=== PATIENT | female | born 1980 | race Caucasian/White ===

== ENCOUNTER 2018-09-22 00:44 | Emergency (ER) | payer MEDICAID ==
[2018-09-22] MEDS ORDERED: PREDNISONE 20 MG TAB PO ONE (00:51)
--- NOTE | 2018-09-22 00:56 | Emergency Department Record ---
History of Present Illness - General Chief Complaint: Difficulty Swallowing Stated Complaint: CAN'T SWALLOW Time Seen by Provider: 09/22/18 00:47 Source: Patient Mode of Arrival: Ambulatory Limitations: No limitations - History of Present Illness Initial Comments: 38 yo female presents to ED for evaluation of difficulty swallowing that began approximately 20 minutes prior to arrival. Patient denies wheezing, KEV, rash or itching symptoms. Patient reports the ability to swallow liquids without difficulty. Patient reports taking an OTC back pain pill and sleeping pill this evening, has taken the sleeping pill previously without these symptoms. Patient denies health problems at her baseline other than GERD. Onset/Timin -: Minutes(s) History of same: No Place: Home Severity: Moderate Improves With: None Worsens With: None On Anticoagulants: No Associated Symptoms: Denies other symptoms - [place] Coma Scale Eye Response: (4) Open spontaneously Motor Response: (6) Obeys commands Verbal Response: (5) Oriented [place] Total: 15 - Related Data Home Medications: Previous Rx's Medication Instructions Recorded Prednisone [Prednisone 20Mg] 20 mg PO BID #5 tab 09/22/18 Allergies/Adverse Reactions: Allergies Allergy/AdvReac Type Severity Reaction Status Date / Time No Known Drug Allergies Allergy Verified 09/22/18 00:57 Review of Systems Constitutional: Denies: Chills, Fever, Malaise, Night sweats Eyes: Denies: Eye discharge, Eye pain ENT: Denies: Congestion, Ear pain, Epistaxis Respiratory: Denies: Cough, Dyspnea Cardiovascular: Denies: Chest pain, Dyspnea on exertion Endocrine: Denies: Fatigue, Heat or cold intolerance Gastrointestinal: Reports: Other (Dysphagia). Denies: Abdominal pain, Nausea, Vomiting Genitourinary: Denies: Incontinence, Retention Musculoskeletal: Denies: Arthralgia, Back pain Skin: Denies: Bruising, Change in color Neurological: Denies: Abnormal gait, Confusion, Headache, Seizure Psychiatric: Denies: Anxiety Hematological/Lymphatic: Denies: Anemia, Blood Clots Physical Exam - General General Appearance: Alert, Oriented x3, Cooperative, Mild distress, Anxious Limitations: No limitations - Head Head exam: Atraumatic, Normocephalic, Normal inspection Head exam detail: negative: Abrasion, Contusion, Crocker's sign, General tenderness, Hematoma, Laceration - Eye Eye exam: Normal appearance. negative: Conjunctival injection, Periorbital swelling, Periorbital tenderness, Scleral icterus - ENT Ear exam: negative: Auricular hematoma, Auricular trauma Nasal Exam: negative: Active bleeding, Discharge, Dried blood, Foreign body Mouth exam: Tongue normal. negative: Drooling, Laceration, Muffled voice, Tongue elevation Throat exam: Other (Mild uvular edema is present on examination). negative: Tonsillar erythema, Tonsillomegaly, R peritonsillar mass, L peritonsillar mass - Neck Neck exam: Normal inspection. negative: Meningismus, Tenderness - Respiratory Respiratory exam: Normal lung sounds bilaterally. negative: Rales, Respiratory distress, Rhonchi, Stridor - Cardiovascular Cardiovascular Exam: Regular rate, Normal rhythm, Normal heart sounds - GI/Abdominal GI/Abdominal exam: Soft. negative: Rebound, Rigid, Tenderness - Rectal Rectal exam: Deferred - exam: Deferred - Extremities Extremities exam: Normal inspection. negative: Pedal edema, Tenderness - Back Back exam: Denies: CVA tenderness (R), CVA tenderness (L) - Neurological Neurological exam: Alert, Normal gait, Oriented X3 - Psychiatric Psychiatric exam: Normal affect, Normal mood - Skin Skin exam: Normal color. negative: Abrasion Type of lesion: negative: abrasion Course Vital Signs 09/22/18 00:49 Temperature 97.8 F Pulse Rate [ 97 H Pulse Ox Probe] Respiratory 20 Rate Blood Pressure 172/124 [Left Arm] Pulse Ox 100 - Reevaluation(s) Reevaluation #1: 09/22/18 00:56 Patient was seen and examined, no evidence for esophageal FB, no evidence for anaphylactic reaction. ? localized uvular edema? Will administer Prednisone and observe here in the ED. Reevaluation #2: 09/22/18 03:06 Patient reassessed, reports improvement in her symptoms. Awaiting CT imaging result. Reevaluation #3: 09/22/18 03:12 CT Soft-tissue neck: No acute findings Right maxillary sinus disease Patient was updated on all results, reports that she is feeling much better. Patient's symptoms appears most consistent with probable uvular edema. Will continue Prednisone for 3 days with instructions for follow-up with her PCP. Disposition Disposition: Discharge Clinical Impression: Uvular edema Disposition: Home, Self-Care Condition: (2) Stable Instructions: Uvulitis (ED) Additional Instructions: Return to ED if your symptoms worsen or if you have any concerns. Prednisone as directed. Follow-up with your family doctor in 1-3 days as directed. Prescriptions: Prednisone [Prednisone 20Mg] 20 mg PO BID #5 tab Forms: Patient Portal Access Time of Disposition: 03:14 Quality - Quality Measures Quality Measures: N/A - Blood Pressure Screening Does Patient Have Any of the Following: No Blood Pressure Classification: Hypertensive Reading Systolic Measurement: 144 Diastolic Measurement: 106 Screening for High Blood Pressure: < First Hypertensive BP, F/U Documented > [ G8950] First Hypertensive Follow-up Interventions: Referral to alternative/primary care provider.
[2018-09-22] MEDS ORDERED: MAGNESIUM HYDROXIDE/AL HYDROX 30 ML, LIDOCAINE VISC 2% 15ML 15 ML PO ONE ×2 (01:33)
== END 2018-09-22 03:23 | disposition home or self-care (01) ==
LOC: ER 00:44
DX: K13.79 Other lesions of oral mucosa (principal); R13.10 Dysphagia, unspecified
CPT/HCPCS: 70491; 99283; 99284; J7512

== ENCOUNTER 2018-10-07 14:32 | Emergency (ER) | payer MEDICAID ==
[2018-10-07] MEDS ORDERED: 0.9 % SODIUM CHLORIDE 1,000 ML BAG IV ONE (16:33)
--- NOTE | 2018-10-07 16:46 | Emergency Department Record ---
History of Present Illness - General Chief Complaint: Abdominal Pain Stated Complaint: RT ABD PAIN Time Seen by Provider: 10/07/18 16:29 Source: Patient Mode of Arrival: Ambulatory Limitations: No limitations - History of Present Illness Initial Comments: pt has had rlq ap for a week. she has n MD Complaint: Abdominal pain Onset/Timin -: Days(s) Location: Bilateral flank, RLQ Radiation: Back Severity scale (1-10): 3 Quality: Aching Improves With: Rest Worsens With: Movement Associated Symptoms: Anorexia, Nausea Treatments Prior to Arrival: Prescription analgesics, Antacids - Related Data LMP Date: 10/07/18 Home Medications Medication Instructions Recorded Confirmed Last Taken Tramadol HCl [Ultram] 50 mg PO BID 10/07/18 10/07/18 10/07/18 Allergies Allergy/AdvReac Type Severity Reaction Status Date / Time No Known Drug Allergies Allergy Verified 09/22/18 00:57 Travel Screening - Travel/Exposure Within Last 30 Days Have you traveled within the last 30 days?: No - Travel Symptoms Symptom Screening: Stomach Pain, Lack of Appetite Review of Systems Reviewed: No additional complaints except as noted below Constitutional: Reports: As per HPI. Denies: Chills, Fever, Malaise, Night sweats, Weakness, Weight change Eyes: Reports: As per HPI. Denies: Eye discharge, Eye pain, Photophobia, Vision change ENT: Reports: As per HPI. Denies: Congestion, Dental pain, Ear pain, Epistaxis , Hearing loss, Throat pain Respiratory: Reports: As per HPI. Denies: Cough, Dyspnea, Hemoptysis, Stridor, Wheezes Cardiovascular: Reports: As per HPI. Denies: Arrhythmia, Chest pain, Dyspnea on exertion, Edema, Murmurs, Orthopnea, Palpitations, Paroxysmal nocturnal dyspnea, Rheumatic Fever, Syncope Endocrine: Reports: As per HPI. Denies: Fatigue, Heat or cold intolerance, Polydipsia, Polyuria Gastrointestinal: Reports: As per HPI, Abdominal pain, Nausea. Denies: Constipation, Diarrhea, Hematemesis, Hematochezia, Melena, Vomiting Genitourinary: Reports: As per HPI. Denies: Abnormal menses, Discharge, Dyspareunia, Dysuria, Frequency, Hematuria, Incontinence, Retention, Urgency Musculoskeletal: Reports: As per HPI. Denies: Arthralgia, Back pain, Gout, Joint swelling, Myalgia, Neck pain Skin: Reports: As per HPI. Denies: Bruising, Change in color, Change in hair/ nails, Lesions, Pruritus, Rash Neurological: Reports: As per HPI. Denies: Abnormal gait, Confusion, Headache, Numbness, Paresthesias, Seizure, Tingling, Tremors, Vertigo, Weakness Psychiatric: Reports: As per HPI. Denies: Anxiety, Auditory hallucinations, Depression, Homicidal thoughts, Suicidal thoughts, Visual hallucinations Hematological/Lymphatic: Reports: As per HPI. Denies: Anemia, Blood Clots, Easy bleeding, Easy bruising, Swollen glands Past Medical History - SOCIAL HISTORY Smoking Status: Former smoker - RESPIRATORY Hx Respiratory Disorders: No - CARDIOVASCULAR Hx Cardio Disorders: No - NEURO Hx Neuro Disorders: No - GI Hx GI Disorders: Yes Hx Reflux: Yes - Hx Genitourinary Disorders: Yes Hx Kidney Stones: Yes - ENDOCRINE Hx Endocrine Disorders: No - MUSCULOSKELETAL Hx Musculoskeletal Disorders: No - PSYCH Hx Psych Problems: No - HEMATOLOGY/ONCOLOGY Hx Hematology/Oncology Disorders: No Family Medical History Any Significant Family History?: Yes Hx Diabetes: Grandparents Physical Exam - General General Appearance: Alert, Oriented x3, Cooperative, Mild distress - Head Head exam: Normal inspection - Eye Eye exam: Normal appearance, PERRL, EOMI Pupils: Normal accommodation - ENT ENT exam: Normal exam, Mucous membranes moist, Normal external ear exam, Normal orophraynx Ear exam: Normal external inspection. negative: External canal tenderness Nasal Exam: Normal inspection. negative: Discharge, Sinus tenderness Mouth exam: Normal external inspection, Tongue normal Teeth exam: Normal inspection. negative: Dental caries Throat exam: Normal inspection. negative: Tonsillar erythema, Tonsillar exudate - Neck Neck exam: Normal inspection, Full ROM. negative: Tenderness - Respiratory Respiratory exam: Normal lung sounds bilaterally. negative: Respiratory distress - Cardiovascular Cardiovascular Exam: Regular rate, Normal rhythm, Normal heart sounds - GI/Abdominal GI/Abdominal exam: Soft, Normal bowel sounds, Tenderness (rlq) - Rectal Rectal exam: Deferred - exam: Deferred - Extremities Extremities exam: Normal inspection, Full ROM, Normal capillary refill. negative: Tenderness - Back Back exam: Reports: Normal inspection, Full ROM. Denies: Muscle spasm, Rash noted, Tenderness - Neurological Neurological exam: Alert, CN II-XII intact, Normal gait, Oriented X3 - Psychiatric Psychiatric exam: Normal affect, Normal mood - Skin Skin exam: Dry, Intact, Normal color, Warm Course Vital Signs 10/07/18 15:48 Temperature 98.1 F Pulse Rate 89 Respiratory 18 Rate Blood Pressure 146/113 Pulse Ox 98 - Reevaluation(s) Reevaluation #1: 10/07/18 19:27 ct neg for appy or obstruction Medical Decision Making - Lab Data Result diagrams: 10/07/18 16:45 10/07/18 16:45 Disposition Disposition: Discharge Clinical Impression: Abdominal pain Qualifiers: Abdominal location: right lower quadrant Qualified Code(s): R10.31 - Right lower quadrant pain Disposition: Home, Self-Care Condition: (1) Good Instructions: Abdominal Pain (ED) Additional Instructions: follow up with family doctor. return sooner if worse. if pain increases be rechecked Forms: Patient Portal Access Quality - Quality Measures Quality Measures: N/A - Blood Pressure Screening Does Patient Have Any of the Following: No Blood Pressure Classification: Hypertensive Reading Systolic Measurement: 146 Diastolic Measurement: 113 Screening for High Blood Pressure: < First Hypertensive BP, F/U Documented > [ G8950] First Hypertensive Follow-up Interventions: Follow-up with rescreen GT 1 day and LT 4 weeks.
[2018-10-07 16:48] LABS: BASO % 0.6 % (0-6); EOS % 3.2 % (0-6); GRAN % 69.9 % (47-80); HEMATOCRIT 38.1 % (35.0-47.0); HEMOGLOBIN 12.3 gm/dl (11.6-16.0); LYMPH % 18.5 % (16-45); MEAN CELL VOLUME 74.9 fl (81-97); MEAN CORPUSCULAR HEMOGLOBIN 24.2 pg (27-33); MEAN CORPUSCULAR HGB CONC 32.3 g/dl (32-36); MONO % 7.8 % (0-9); PLATELET COUNT 290 K/uL (130-400); RED BLOOD COUNT 5.09 M/uL (3.80-5.40); RED CELL DISTRIBUTION WIDTH 15.6 % (11.5-14.5); URINE APPEARANCE CLEAR; URINE BILIRUBIN NEGATIVE (NEGATIVE); URINE BLOOD NEGATIVE (NEGATIVE); URINE COLOR YELLOW; URINE GLUCOSE (UA) NEGATIVE (NEGATIVE); URINE KETONE NEGATIVE (NEGATIVE); URINE LEUKOCYTE ESTERASE NEGATIVE (NEGATIVE); URINE NITRITE NEGATIVE (NEGATIVE); URINE PROTEIN NEGATIVE (NEGATIVE); URINE UROBILINOGEN 0.2 E.U./dL (0.20 - 1.00)
[2018-10-07 16:50] LABS: HCG,QUALITATIVE URINE NEGATIVE (NEGATIVE)
[2018-10-07 17:00] LABS: BLOOD UREA NITROGEN 17 mg/dL (6-20); CREATININE 0.6 mg/dL (0.5-0.9); EST GLOMERULAR FILTRATION RATE > 60 mL/min
[2018-10-07 17:03] LABS: GLUCOSE,RANDOM 90 mg/dL (74-109)
[2018-10-07] MEDS ORDERED: KETOROLAC 30 MG/ML VIAL IVP ONE (19:25)
--- NOTE | 2018-10-09 19:59 | CT SCAN REPORT ---
EXAM: CT SCAN ABDOMEN/PELVIS WO CONTRAST HISTORY: RIGHT FLANK PAIN FOR FIVE DAYS. TECHNIQUE: Noncontrast CT abdomen and pelvis. COMPARISON: None. FINDINGS: Lung bases clear. Unremarkable noncontrast appearance of the liver, gallbladder, spleen, adrenal glands, and pancreas. Numerous bilateral 1 to 2 mm intrarenal calculi. No hydronephrosis. No definite intraureteral or bladder calculi. Normal appendix. No focal colonic thickening or inflammatory change. Stomach and small bowel are nondilated. No free air. No significant free fluid. No intrapelvic mass identified. No adenopathy. Abdominal aorta is nondilated. No acute osseous findings. IMPRESSION: 1. MULTIPLE BILATERAL SMALL INTRARENAL CALCULI. NO HYDRONEPHROSIS OR URETERAL/ BLADDER CALCULI IDENTIFIED. 2. NO ACUTE FINDINGS IN THE ABDOMEN OR PELVIS. JOB NUMBER: [id number] MTDD
== END 2018-10-07 19:41 | disposition home or self-care (01) ==
LOC: ER 14:32
DX: R10.31 Right lower quadrant pain (principal); R11.0 Nausea; Z87.891 Personal history of nicotine dependence
CPT/HCPCS: 99284 ×2; 96374; 85025; 80048; 81003; 81025; 74176; J1885; J7030

== ENCOUNTER 2019-05-24 05:35 | Emergency (ER) | payer MEDICAID ==
[2019-05-24] MEDS ORDERED: KETOROLAC 30 MG/ML VIAL IVP ONE (05:37)
[2019-05-24] MEDS ORDERED: 0.9 % SODIUM CHLORIDE 1000ML 1,000 ML IV SCH (05:45)
[2019-05-24] MEDS ORDERED: ONDANSETRON HCL IV 4 MG/2 ML VIAL IVP ONE (05:46)
--- NOTE | 2019-05-24 05:46 | Emergency Department Record ---
History of Present Illness - General Stated Complaint: "KIDNEY STONE" Time Seen by Provider: 05/24/19 05:36 Source: Patient, Old records reviewed Limitations: No limitations - History of Present Illness Initial Comments: 38 yo female presents to ED for evaluation of left sided flank pain, abdominal, pain, and vomiting that began approximately 3 hours ago. Patient reports similar symptoms related to kidney stones, has seen Dr. Nelson in [place] previously. Patient denies dysuria, fevers, chills, or recent illness. Patient denies health problems at her baseline. MD Complaint: Flank pain Onset/Timin -: Hour(s) Location: L Flank Radiation: None Migration to: LUQ Severity: Severe Quality: Aching Consistency: Constant Improves With: Nothing Worsens With: Nothing Associated Symptoms: Vomiting - Related Data Previous Rx's Medication Instructions Recorded Ibuprofen [Motrin] 800 mg PO Q6H PRN #30 tab 05/24/19 Tamsulosin HCl [Flomax] 0.4 mg PO DAILY #14 cap.er.24h 05/24/19 Allergies Allergy/AdvReac Type Severity Reaction Status Date / Time No Known Drug Allergies Allergy Unverified 02/07/19 16:26 Review of Systems Constitutional: Denies: Chills, Fever, Malaise, Night sweats Eyes: Denies: Eye discharge, Eye pain ENT: Denies: Congestion, Ear pain, Epistaxis Respiratory: Denies: Cough, Dyspnea Cardiovascular: Denies: Chest pain, Dyspnea on exertion Endocrine: Denies: Fatigue, Heat or cold intolerance Gastrointestinal: Reports: Abdominal pain, Nausea, Vomiting. Denies: Constipation Genitourinary: Denies: Incontinence, Retention Musculoskeletal: Reports: Back pain. Denies: Arthralgia, Gout, Joint swelling Skin: Denies: Bruising, Change in color Neurological: Denies: Abnormal gait, Confusion, Headache, Seizure Psychiatric: Denies: Anxiety Hematological/Lymphatic: Denies: Anemia, Blood Clots Past Medical History - SOCIAL HISTORY Smoking Status: Former smoker - RESPIRATORY Hx Respiratory Disorders: No - CARDIOVASCULAR Hx Cardio Disorders: No - NEURO Hx Neuro Disorders: No - GI Hx GI Disorders: Yes Hx Reflux: Yes - Hx Genitourinary Disorders: Yes Hx Kidney Stones: Yes - ENDOCRINE Hx Endocrine Disorders: No - MUSCULOSKELETAL Hx Musculoskeletal Disorders: No - PSYCH Hx Psych Problems: No - HEMATOLOGY/ONCOLOGY Hx Hematology/Oncology Disorders: No Family Medical History Hx Diabetes: Grandparents Physical Exam - General General Appearance: Alert, Oriented x3, Cooperative, Moderate distress Limitations: No limitations - Head Head exam: Atraumatic, Normocephalic, Normal inspection Head exam detail: negative: Abrasion, Contusion, Crocker's sign, General tenderness, Hematoma, Laceration - Eye Eye exam: Normal appearance. negative: Conjunctival injection, Periorbital swelling, Periorbital tenderness, Scleral icterus - ENT Ear exam: negative: Auricular hematoma, Auricular trauma Nasal Exam: negative: Active bleeding, Discharge, Dried blood, Foreign body Mouth exam: negative: Drooling, Laceration, Muffled voice, Tongue elevation - Neck Neck exam: Normal inspection. negative: Meningismus, Tenderness - Respiratory Respiratory exam: Normal lung sounds bilaterally. negative: Rales, Respiratory distress, Rhonchi, Stridor - Cardiovascular Cardiovascular Exam: Regular rate, Normal rhythm, Normal heart sounds - GI/Abdominal GI/Abdominal exam: Soft. negative: Rebound, Rigid, Tenderness - Rectal Rectal exam: Deferred - exam: Deferred - Extremities Extremities exam: Normal inspection. negative: Pedal edema, Tenderness - Back Back exam: Reports: CVA tenderness (L). Denies: CVA tenderness (R) - Neurological Neurological exam: Alert, Normal gait, Oriented X3 - Psychiatric Psychiatric exam: Normal affect, Normal mood - Skin Skin exam: Normal color. negative: Abrasion Type of lesion: negative: abrasion Course - Reevaluation(s) Reevaluation #1: 05/24/19 06:16 Laboratory studies were reviewed and appear grossly unremarkable for an acute process except for the following: UA: RBCs: 36-50 Epis: 0-2 WBCs: None Bact: None Reevaluation #2: 05/24/19 06:54 CT Abdomen and Pelvis: 3 mm obstructing calculi to the left proximal ureter with mild hydronephrosis present Bilateral intra-renal calculi present Patient was updated on all results, reports that her pain symptoms are significantly improved. Patient appears stable for discharge on Flomax and Motrin as directed. Referral was placed to follow-up with Dr. Bai in 3-5 days as directed. Medical Decision Making - Lab Data Result diagrams: 05/24/19 05:45 05/24/19 05:45 Disposition Disposition: Discharge Clinical Impression: Ureteral calculi Disposition: Home, Self-Care Condition: (2) Stable Instructions: Flank Pain (ED) Additional Instructions: Return to ED if your symptoms worsen or if you have any concerns. Flomax and Motrin 800 mg as directed. Follow-up with Dr. Bai in 3-5 days as directed. Prescriptions: Tamsulosin HCl [Flomax] 0.4 mg PO DAILY #14 cap.er.24h Ibuprofen [Motrin] 800 mg PO Q6H PRN #30 tab PRN Reason: Pain - Mod To Severe (5-10) Referrals: Alonzo Bai M.D. [MEDICAL DOCTOR] - [facility] [Provider Group] Forms: Patient Portal Access Time of Disposition: 06:52 Quality - Quality Measures Quality Measures: N/A - Blood Pressure Screening Does Patient Have Any of the Following: No Blood Pressure Classification: Hypertensive Reading Systolic Measurement: 144 Diastolic Measurement: 74 Screening for High Blood Pressure: < First Hypertensive BP, F/U Documented > [G8950] First Hypertensive Follow-up Interventions: Referral to alternative/primary care provider.
[2019-05-24 05:54] LABS: ABSOLUTE NEUTROPHIL COUNT 6.22; BASO % 0.4 % (0-6); EOS % 2.6 % (0-6); GRAN % 69.4 % (47-80); HEMATOCRIT 38.9 % (35.0-47.0); HEMOGLOBIN 12.1 gm/dl (11.6-16.0); LYMPH % 21.5 % (16-45); MEAN CELL VOLUME 74.5 fl (81-97); MEAN CORPUSCULAR HEMOGLOBIN 23.2 pg (27-33); MEAN CORPUSCULAR HGB CONC 31.1 g/dl (32-36); MEAN PLATELET VOLUME 8.7 fl (7.4-10.4); MONO % 6.1 % (0-9); PLATELET COUNT 444 K/uL (130-400); RED BLOOD COUNT 5.22 M/uL (3.80-5.40); RED CELL DISTRIBUTION WIDTH 14.8 % (11.5-14.5); URINE BILIRUBIN NEGATIVE (NEGATIVE); URINE BLOOD LARGE (NEGATIVE); URINE COLOR YELLOW; URINE GLUCOSE (UA) NEGATIVE (NEGATIVE); URINE KETONE NEGATIVE (NEGATIVE); URINE LEUKOCYTE ESTERASE NEGATIVE (NEGATIVE); URINE NITRITE NEGATIVE (NEGATIVE); URINE PROTEIN NEGATIVE (NEGATIVE); URINE UROBILINOGEN 0.2 E.U./dL (0.20 - 1.00)
[2019-05-24 06:00] LABS: URINE APPEARANCE SL CLOUDY
[2019-05-24 06:04] LABS: URINE RBC 36 - 50 (NONE SEEN); URINE WBC NONE SEEN (0-2/hpf)
[2019-05-24 06:05] LABS: URINE BACTERIA NONE SEEN; URINE EPITHELIAL CELLS 0 - 2 (FEW)
[2019-05-24 06:09] LABS: BLOOD UREA NITROGEN 13 mg/dL (6-20); CREATININE 0.6 mg/dL (0.5-0.9); EST GLOMERULAR FILTRATION RATE > 60 mL/min
[2019-05-24 06:10] LABS: TOTAL PROTEIN 7.4 g/dL (6.6-8.7)
[2019-05-24 06:12] LABS: GLUCOSE,RANDOM 124 mg/dL (74-109)
[2019-05-24 06:14] LABS: ALT/SGPT 17 U/L (<33)
[2019-05-24 06:15] LABS: ALB/GLOB RATIO 1.5 (1.1-1.8); ALBUMIN 4.4 g/dL (4.0-5.0); ALKALINE PHOSPHATASE 96 U/L (35-104); AST/SGOT 14 U/L (10.0-35.0)
--- NOTE | 2019-05-24 06:51 | CT SCAN REPORT ---
EXAMINATION: CT Abdomen and Pelvis without IV Contrast EXAM DATE: 05/24/2019 6:40 AM TECHNIQUE: Standard protocol CT imaging of the abdomen and pelvis was performed without intravenous c ontrast. INDICATION: Left flank pain COMPARISON: CT of the abdomen and pelvis 10/07/2018 ENCOUNTER: Not applicable CT ABDOMEN AND PELVIS FINDINGS: Lung Bases: Included extent of the lung bases are clear. Hepatobiliary: The liver has a normal size with a smooth surface. There is no biliary dilatation and the gallbladder is unremarkable. Pancreas: The pancreas is normal. Spleen: The spleen is not enlarged. Adrenals: The adrenal glands are normal. Kidneys, Ureters, & Bladder: Multiple bilateral small renal calculi. Obstructing calculus at the prox imal left ureter measuring 3 mm. Right extrarenal pelvis. Both ureters have a normal course and calib er and the urinary bladder a normal morphology and uniform wall thickness. No ureteral or bladder shaina culi are identified. Gastrointestinal: Decompressed stomach. No bowel dilation. The appendix is normal. The large bowel is within normal limits. Reproductive Organs: Unremarkable Lymphatic System: There is no adenopathy within the abdomen or pelvis. Vasculature: Normal caliber abdominal aorta Peritoneum: No free fluid, free air, or inflammation Abdominal wall & Musculoskeletal: No suspicious bone lesions. Assessment of the solid organs, soft tissues, and vascular structures is overall limited on noncontra st imaging, IMPRESSION: Obstructing 3 mm calculus at the proximal left ureter with mild left hydronephrosis. Multiple small bilateral renal calculi. Dictated by: Tay Copeland MD on 05/24/2019 6:47 AM. .
== END 2019-05-24 07:19 | disposition home or self-care (01) ==
LOC: ER 05:35
DX: N13.2 Hydronephrosis with renal and ureteral calculous obstruction (principal); R11.10 Vomiting, unspecified; Z87.442 Personal history of urinary calculi
CPT/HCPCS: 74176; 80053; 81001; 85025; 96361; 96374; 96375; 99284; J1885; J2405; J7030